=== PATIENT | female | born 1955 | race Two or more races ===

== ENCOUNTER 2021-12-11 12:45 | Inpatient (IN) | payer OTHER ==
[~2021-12-11] VITALS: Ht 154.9 cm; Wt 65.8 kg
== END 2021-12-15 12:16 | disposition home or self-care (01) | DRG 741 ==
LOC: O/R 12-13 06:12 → OB/GYN 12-13 06:12
PROVIDERS: ADMIT Specialist; ATTEND Specialist
PROC: 0UT70ZZ Resection of Bilateral Fallopian Tubes, Open Approach (ICD-10-PCS; 2021-12-13)
PROC: 0UT20ZZ Resection of Bilateral Ovaries, Open Approach (ICD-10-PCS; 2021-12-13)
PROC: 07BC0ZZ Excision of Pelvis Lymphatic, Open Approach (ICD-10-PCS; 2021-12-13)
PROC: 3E1M38Z Irrigation of Peritoneal Cavity using Irrigating Substance, Percutaneous Approach (ICD-10-PCS; 2021-12-13)
PROC: 0UT90ZZ Resection of Uterus, Open Approach (ICD-10-PCS; principal; 2021-12-13 08:30)
DX: C54.1 Malignant neoplasm of endometrium (principal); Z20.822 Contact with and (suspected) exposure to COVID-19